=== PATIENT | male | born 1995 | race Two or more races ===

== ENCOUNTER 2019-04-03 11:13 | Emergency (ER) | payer MEDICAID ==
[~2019-04-03] VITALS: Ht 175.3 cm; Wt 73.0 kg
--- NOTE | 2019-04-03 11:45 | NUR ---
PT BIB SELF C/O ABDOMINAL PAIN AND N/V FOR 2 DAYS, PT IS AAOX4, NOT IN RESPIRATORY DISTRESS, V/S STABLE, KEPT RESTED AND COMFORTABLE, WILL CONTINUE TO MONITOR.
[2019-04-03] MEDS ORDERED: FAMOTIDINE/PF INJ 20 MG/2 ML VIAL IV ONE ×2 (11:58→12:00)
[2019-04-03] MEDS ORDERED: ONDANSETRON HCL/PF 4 MG/2 ML VIAL ONE (11:58)
[2019-04-03] MEDS ORDERED: diphenhydrAMINE HCL 50 MG/ML VIAL ONE (11:58)
[2019-04-03] MEDS ORDERED: MISCELLANEOUS MED 1 EA EA XX ONE (12:00)
[2019-04-03] MEDS ORDERED: IV NS 0.9% 1,000 ML BAG IV ONE (12:00)
[2019-04-03] MEDS ORDERED: ONDANSETRON HCL/PF 4 MG/2 ML VIAL IVP ONE (12:00)
[2019-04-03] MEDS ORDERED: diphenhydrAMINE HCL 50 MG/ML VIAL IV ONE (12:00)
--- NOTE | 2019-04-03 12:00 | NUR ---
IV LINE ESTABLISHED, BLOOD DRAWNED AND SENT TO LAB.
[2019-04-03 12:08] LABS: BASOPHILS % (AUTO) 0.2 % (0.0-2.0); EOSINOPHILS % (AUTO) 0.1 % (0.0-6.0); HEMATOCRIT 41 % (39-51); HEMOGLOBIN 14.2 g/dL (13.5-17.5); LYMPHOCYTES # (AUTO) 1.1 /CMM (0.8-4.8); LYMPHOCYTES % (AUTO) 8.6 % (20.0-44.0); MEAN CORPUSCULAR HGB CONC 35 g/dl (31.0-36.0); MEAN CORPUSCULAR VOLUME 89 fL (80-96); MONOCYTES # (AUTO) 0.7 /CMM (0.1-1.30); MONOCYTES % (AUTO) 5.7 % (2.0-12.0); NEUTROPHILS # (AUTO) 11.2 /CMM (1.8-8.9); NEUTROPHILS % (AUTO) 85.4 % (43.0-81.0); PLATELET COUNT (AUTO) 219 /CMM (150-450); RED BLOOD CELL COUNT(AUTO) 4.55 MIL/uL (4.5-6.0); WHITE BLOOD COUNT (AUTO) 13.1 K/uL (4.3-11.0)
[2019-04-03 12:21] LABS: CALCIUM, SERUM 9.4 mg/dL (8.5-10.1); CREATININE 1.1 mg/dL (0.6-1.3)
[2019-04-03 12:26] LABS: ALBUMIN 4.6 g/dL (3.4-5.0); BILIRUBIN,DIRECT 0.4 mg/dL (0.0-0.2); BILIRUBIN,TOTAL 2.7 mg/dL (0.2-1.0); TOTAL PROTEIN, SERUM 7.9 g/dL (6.4-8.2)
[2019-04-03] MEDS ORDERED: POTASSIUM CHLORIDE 20 MEQ TAB.PRT.SR PO ONE ×2 (12:56→13:00)
--- NOTE | 2019-04-03 13:13 | NUR ---
IV removed. Catheter intact and site benign. Pressure and 4x4 applied to site. No bleeding noted. Patient discharged to home in stable condition. Written and verbal after care instructions given. Patient verbalizes understanding of instruction.
[2019-04-03 13:14] VITALS: BP 121/76
== END 2019-04-03 13:15 | disposition home or self-care (01) ==
LOC: ER 11:19
DX: F12.19 Cannabis abuse with unspecified cannabis-induced disorder (principal); R11.2 Nausea with vomiting, unspecified; E87.6 Hypokalemia
CPT/HCPCS: 36415; 80048; 80076; 83690; 85025; 96361; 96374; 96375; 99283; J1200; J2405; J3490; J7030

== ENCOUNTER 2019-04-04 05:22 | Emergency (ER) | payer MEDICAID ==
[~2019-04-04] VITALS: Ht 175.3 cm; Wt 72.6 kg
[2019-04-04 05:30] VITALS: BP 151/69
--- NOTE | 2019-04-04 05:30 | NUR ---
PT C/C N/V X5 DAYS, POOR PO TOLERANCE, EPIGASTRIC PRESSURE. PT ABD NONTENDER. PT DENIES PAIN AT THIS TIME. PT WAS SEEN HERE YESTERDAY. PT AOX4. NAD NOTED. RESP EVEN AND UNLABORED. PT ON MONITOR IN BED 10 WITH FRIEND AT BEDSIDE. WILL CONTINUE TO MONITOR.
[2019-04-04] MEDS ORDERED: PANTOPRAZOLE 40 MG VIAL ONE (05:50)
[2019-04-04] MEDS ORDERED: METOCLOPRAMIDE HCL 10 MG/2 ML VIAL ONE (05:50)
[2019-04-04] MEDS ORDERED: diphenhydrAMINE HCL 50 MG/ML VIAL ONE (05:50)
[2019-04-04] MEDS ORDERED: ONDANSETRON HCL/PF 4 MG/2 ML VIAL ONE (05:50)
[2019-04-04] MEDS ORDERED: diphenhydrAMINE HCL 50 MG/ML VIAL IV ONE (06:00)
[2019-04-04] MEDS ORDERED: PANTOPRAZOLE 40 MG VIAL IV ONE (06:00)
[2019-04-04] MEDS ORDERED: ONDANSETRON HCL/PF - ER 4 MG/2 ML VIAL IV ONE (06:00)
[2019-04-04] MEDS ORDERED: METOCLOPRAMIDE HCL 10 MG/2 ML VIAL IV ONE (06:00)
[2019-04-04] MEDS ORDERED: IV NS 0.9% 1,000 ML BAG IV ONE (06:00)
--- NOTE | 2019-04-04 06:01 | NUR ---
[id number] INITIATED. PT TOLERATED WELL.
--- NOTE | 2019-04-04 06:46 | NUR ---
IV removed. Catheter intact and site benign. Pressure and 4x4 applied to site. No bleeding noted.Patient discharged to home in stable condition. Written and verbal after care instructions given. Patient verbalizes understanding of instruction. PT AMBULATORY WITH STEADY GAIT.
== END 2019-04-04 06:47 | disposition home or self-care (01) ==
LOC: ER 05:24
DX: F12.288 Cannabis dependence with other cannabis-induced disorder (principal); R11.2 Nausea with vomiting, unspecified; E86.0 Dehydration
CPT/HCPCS: 96361; 96374; 96375; 99283; C9113; J1200; J2405; J2765; J7030

== ENCOUNTER 2019-04-05 01:57 | Emergency (ER) | payer MEDICAID ==
[~2019-04-05] VITALS: Ht 175.3 cm; Wt 72.6 kg
--- NOTE | 2019-04-05 02:15 | NUR ---
TO BED 3 AMBULATORY C/O N/V X6 DAYS. PT WAS SEEN HERE YESTERDAY AND THE DAY BEFORE YESTERDAY. PT AAOX4 NO ACUTE DISTRESS NOTED, RESP EVEN AND UNLABORED. PENDING ER MD PIERRE.
--- NOTE | 2019-04-05 02:38 | NUR ---
YASH JULIO AT BEDSIDE TO GABBY RUDD.
[2019-04-05] MEDS ORDERED: ONDANSETRON HCL/PF 4 MG/2 ML VIAL ONE (02:51)
[2019-04-05] MEDS ORDERED: FAMOTIDINE/PF INJ 20 MG/2 ML VIAL IV ONE ×2 (02:51→03:00)
[2019-04-05] MEDS ORDERED: ONDANSETRON HCL/PF 4 MG/2 ML VIAL IVP ONE (03:00)
[2019-04-05] MEDS ORDERED: IV NS 0.9% 1,000 ML BAG IV ONE (03:00)
--- NOTE | 2019-04-05 03:03 | NUR ---
PT MEDICATED ORDERED.
--- NOTE | 2019-04-05 03:12 | NUR ---
HANANE WILLIS AT BEDSIDE.
[2019-04-05 03:14] LABS: BASOPHILS % (AUTO) 0.2 % (0.0-2.0); EOSINOPHILS % (AUTO) 0.1 % (0.0-6.0); HEMATOCRIT 42 % (39-51); HEMOGLOBIN 14.8 g/dL (13.5-17.5); LYMPHOCYTES # (AUTO) 1.4 /CMM (0.8-4.8); LYMPHOCYTES % (AUTO) 15.6 % (20.0-44.0); MEAN CORPUSCULAR HGB CONC 35 g/dl (31.0-36.0); MEAN CORPUSCULAR VOLUME 90 fL (80-96); MONOCYTES # (AUTO) 0.7 /CMM (0.1-1.30); MONOCYTES % (AUTO) 8.3 % (2.0-12.0); NEUTROPHILS # (AUTO) 6.7 /CMM (1.8-8.9); NEUTROPHILS % (AUTO) 75.8 % (43.0-81.0); PLATELET COUNT (AUTO) 200 /CMM (150-450); RED BLOOD CELL COUNT(AUTO) 4.72 MIL/uL (4.5-6.0); WHITE BLOOD COUNT (AUTO) 8.8 K/uL (4.3-11.0)
[2019-04-05 03:15] LABS: ALBUMIN 4.6 g/dL (3.4-5.0); BILIRUBIN,DIRECT 0.4 mg/dL (0.0-0.2); CALCIUM, SERUM 9.4 mg/dL (8.5-10.1); CREATININE 1.2 mg/dL (0.6-1.3); POTASSIUM 3.3 mmol/L (3.5-5.1); TOTAL PROTEIN, SERUM 7.9 g/dL (6.4-8.2)
--- NOTE | 2019-04-05 04:26 | NUR ---
IV removed. Catheter intact and site benign. Pressure and 4x4 applied to site. No bleeding noted. Patient discharged to home in stable condition. Written and verbal after care instructions given. Patient verbalizes understanding of instruction. ambulatory with a steady gait noted. pt aaox4 carol cute distress noted, resp even and unlabored. pt s/o at bedside to take pt home.
[2019-04-05 04:32] VITALS: BP 127/75
== END 2019-04-05 04:32 | disposition home or self-care (01) ==
LOC: ER 01:59
DX: R11.2 Nausea with vomiting, unspecified (principal); E80.6 Other disorders of bilirubin metabolism; R10.9 Unspecified abdominal pain
CPT/HCPCS: 36415; 76700; 80048; 80076; 83690; 85025; 96361; 96374; 96375; 99284; J2405; J3490; J7030